=== PATIENT | female | born 1940 | race Caucasian/White ===

== ENCOUNTER 2021-11-02 21:11 | Emergency (ER) | payer MEDICARE, OTHER ==
[2021-11-02 21:35] LABS: BASOPHIL 1.2 % (0-2); EOSINOPHIL 4.4 % (0-7); LYMPHOCYTE 19.1 % (15-48); MCH 31.2 pg (25.0-31.0); MCHC 33.3 g/dL (32.0-36.0); MCV 93.5 fL (78.0-100.0); MONOCYTE 6.5 % (0-12); MPV 10.2 fL (6.0-9.5); NEUTROPHIL 68.4 % (41-80); NRBC 0; PLT 276 K/uL (150-400); RBC 4.49 M/uL (4.20-5.40); WBC 8.2 K/uL (4.0-10.5)
[2021-11-02 21:52] LABS: BUN/CREAT RATIO (CALC) 23.5 RATIO; CREATININE 0.68 mg/dL (0.51-0.95); POTASSIUM 3.8 mmol/L (3.5-5.1)
[2021-11-02 23:20] LABS: BILIRUBIN NEGATIVE (NEGATIVE); BLOOD TRACE-INTACT Ery/uL (NEGATIVE); CLARITY CLEAR (CLEAR); COLOR YELLOW (YELLOW); GLUCOSE (U) NORMAL (NORMAL); LEUKOCYTES TRACE Leu/uL (NEGATIVE); NITRITE POSITIVE (NEGATIVE); PROTEIN NEGATIVE (NEGATIVE); SPECIFIC GRAVITY <=1.005 (1.001-1.030)
[2021-11-02 23:51] LABS: BACTERIA 4+; URINARY RBC RARE
== END 2021-11-03 01:03 | disposition home or self-care (01) ==
LOC: FER 21:11
PROVIDERS: Emergency Medicine
DX: S00.03XA Contusion of scalp, initial encounter (principal); N39.0 Urinary tract infection, site not specified; I48.91 Unspecified atrial fibrillation; Z23 Encounter for immunization; Z79.01 Long term (current) use of anticoagulants; W01.0XXA Fall on same level from slipping, tripping and stumbling without subsequent striking against object, initial encounter; Y92.121 Bathroom in nursing home as the place of occurrence of the external cause
CPT/HCPCS: 36415; 70450; 72125; 73070; 80048; 81001; 85025; 87076; 87088; 87186; 90471; 90715; J0696; J7030